=== PATIENT | female | born 1985 | race African-American/Black ===

== ENCOUNTER → 2017-09-06 | Outpatient (CLI) | payer OTHER ==
--- NOTE | 2017-09-06 15:18 | Diagnostic Imaging Report ---
PROCEDURE:PELVIC ULTRASOUND COMPARISON:None. INDICATIONS:AMENORRHEA TECHNIQUE: Grayscale transverse and sagittal transabdominal images were obtained of the pelvis. FINDINGS: UTERUS: Measures 4.1 x 5.0 x 8.4 cm. Myometrial echotexture is normal. No evidence of fibroid. The cervix is normal. ENDOMETRIUM: Measures 1.4 cm in thickness, is homogenously hyperechoic, and normal. No fluid in the initial canal. No gestational sac. RIGHT OVARY: Measures 1.9 x 2.0 x 3.7 cm. The echotexture is normal. Several follicles are present. No mass. LEFT OVARY: Measures 4.6 x 4.5 x 5.4 cm. It contains a hypoechoic structure with linear low level internal echoes measuring 44 x 42 x 48 mm. No increased vascularity on color Doppler interrogation. There is no free fluid within the pelvis. No adnexal masses. CONCLUSION: 1. Normal myometrial echotexture. 2. Prominent endometrium for amenorrhea. No endometrial mass. 3. Left ovarian mass suggestive of a hemorrhagic cyst. Recommend follow-up ultrasound in 10-12 weeks to assess interval change/resolution. Dictated by: Rhys Mcintyre M.D. on 09/06/2017 at 15:19 Electronically approved by: Rhys Mcintyre M.D. on 09/06/2017 at 15:19
== END ==
LOC: US 13:54
PROVIDERS: ATTEND Internal Medicine
DX: N91.2 Amenorrhea, unspecified (principal)
CPT/HCPCS: 76856